=== PATIENT | male | born 1990 | race Caucasian/White ===

== ENCOUNTER 2022-04-24 14:06 | Emergency (ER) | payer OTHER, SELFPAY ==
[2022-04-24 14:16] VITALS: BP 125/75; PULSE 77; RESP 24; TEMP 36.5; O2SAT 96
--- NOTE | 2022-04-24 14:24 | ED.URI ---
HPI - URI/Sore Throat General Chief Complaint: Upper Respiratory Infection Stated Complaint: Fluid in lungs, coughing Time Seen by Provider: 04/24/22 14:20 Source: patient, RN notes reviewed and old records reviewed Mode of arrival: ambulatory Limitations: no limitations History of Present Illness HPI Narrative: 31-year-old male who presents to [facility] care with complaints of cough, congestion, nasal drainage, with some scattered wheezing and shortness of breath when he lays down. Patient does smoke 1 pack daily for the last 15 years. Patient has been COVID vaccinated and he also had COVID in 2020.Patient has been taking Mucinex DM, Tylenol and Dayquil for his symptoms. Patient is able to speak in full sentences with SAO2 96% on room air, mild tachypnea noted with no accessory muscle use. MD elicited complaint: fever, cough and other (ear pain, body aches) Pertinent past history: other (tobacco abuse) Onset (ago): day(s) (day 2 of symptoms) Pain scale (0-10): 5 Treatments prior to arrival: acetaminophen, cold medicine and other (mucinex DM ) Related Data Allergies Allergy/AdvReac Type Severity Reaction Status Date / Time Penicillins Allergy Unknown Unknown Verified 04/24/22 14:34 Review of Systems Review of Systems: CONSTITUTIONAL: feels feverish chills, or sweats. EYES: Denies visual changes, redness, or discharge. ENT: Positive for rhinorrhea, congestion, no sore throat, or otalgia. CARDIOVASCULAR: Denies chest pain, palpitations, or edema. RESPIRATORY: positive for cough or dyspnea when lying down. GASTROINTESTINAL: Denies abdominal pain, nausea, vomiting, or diarrhea. GENITOURINARY: Denies dysuria or hematuria. SKIN: Denies rash or itching. MUSCULOSKELETAL: Denies back pain, joint pain,+ body aches NEUROLOGIC: + headache, no numbness, or weakness. PSYCHIATRIC: Denies anxiety or depression. All systems reviewed & are unremarkable except as noted in HPI and below [facility] Social History Social History (Updated 04/26/22 @ 21:45 by Angelika Rodriguez NP) Smoking packs per day: 1 Smoking cigarettes per day: 20.0 Years smoked: 15 Smoking pack-years: 15.00 Smoking status: Current every day smoker Alcohol intake: current Alcohol use details: social Substance use type: does not use Living arrangements: with family Additional occupation/education comments: [employer] Gender identity (if verbalized by the patient): Male Comments At time of signature, agree with nursing past medical, surgical, social and family history. There is no relevant family history pertinent to the presenting complaint Exam Narrative: GENERAL: ill-appearing, well-nourished, and in no acute distress. HEAD: Normocephalic, atraumatic. EYES: PERRLA and EOMI. ENT: Nares red yellow rhinorrhea no epistaxis. Mucous membranes moist.TM's normal with good light reflex throat with some redness no lesions or tonsil swelling post nasal drainage NECK: Supple.no lymphadenopathy CHEST: Scattered wheezing on auscultation. No respiratory distress.SAO2 96% on room air harsh loose cough able to speak in full sentences, orthopnea reported and some mild tachypnea EXTREMITIES: Normal range of motion. No edema. SKIN: Warm, dry, no rash. NEURO: No focal deficits. Alert and oriented x3. Course Course Level of Care: Express Care Visit Vital Signs Vital signs: Vital Signs Temperature 36.5 C 04/24/22 14:16 Pulse Rate 77 04/24/22 14:16 Respiratory Rate 24 H 04/24/22 14:16 Blood Pressure 125/75 04/24/22 14:16 Pulse Oximetry 96 04/24/22 14:16 Oxygen Delivery Room Air 04/24/22 14:16 Temperature 36.5 C 04/24/22 14:16 Pulse Rate 77 04/24/22 14:16 Respiratory Rate 24 H 04/24/22 14:16 Blood Pressure 125/75 04/24/22 14:16 Pulse Oximetry 96 04/24/22 14:16 Oxygen Delivery Room Air 04/24/22 14:16 Critical Care Time Critical Care Time Critical Care Time: No Discharge Plan Discharge Clinical Impression: URI, acute, Bronch
== END 2022-04-24 14:45 | disposition home or self-care (01) ==
PROVIDERS: Emergency Provider Registered Nurse
DX: J06.9 Acute upper respiratory infection, unspecified (principal); J40 Bronchitis, not specified as acute or chronic; F17.210 Nicotine dependence, cigarettes, uncomplicated
CPT/HCPCS: 99213; G0463

== ENCOUNTER 2024-03-25 20:01 | Emergency (ER) | payer OTHER, SELFPAY ==
[2024-03-25 20:08] VITALS: BP 129/82; PULSE 93; RESP 20; TEMP 36.7; O2SAT 100
--- NOTE | 2024-03-25 20:51 | ED.UPPEXIN ---
HPI - Extremity Injury (Upper) General Chief Complaint: Extremity Injury, Upper Stated Complaint: left hand fish hook in finger Time Seen by Provider: 03/25/24 20:12 Source: patient, RN notes reviewed and old records reviewed Mode of arrival: ambulatory Limitations: no limitations History of Present Illness HPI narrative: 33 year old male accompanied by son presents to express care with complaints of single barbed fish hook in the end of his left index finger which occurred about 1930 this evening. Patient reports that he was cleaning out the tackle box and got new hook stuck in his left index finger, reports sharp pain to finger tip, rates pain 4/10. Patient is right hand dominant, Tetanus last 2016 MD complaint: injury to: left and finger (tip of left index finger fish hook) Onset (ago): hour(s) (1929) Handedness: right Severity scale (1-10): 4 Treatments prior to arrival: other (none) Related Data Allergies Allergy/AdvReac Type Severity Reaction Status Date / Time Penicillins Allergy Unknown Unknown Verified 04/24/22 14:34 Review of Systems Review of Systems: CONSTITUTIONAL: Denies fever, chills, or sweats. EYES: Denies visual changes, redness, or discharge. ENT: Denies rhinorrhea, congestion, sore throat, or otalgia. CARDIOVASCULAR: Denies chest pain, palpitations, or edema. RESPIRATORY: Denies cough or dyspnea. GASTROINTESTINAL: Denies abdominal pain, nausea, vomiting, or diarrhea. GENITOURINARY: Denies dysuria or hematuria. SKIN:foreign body to left index finger single yaz at 1930 this evening MUSCULOSKELETAL: Denies back pain, joint pain, or myalgia. NEUROLOGIC: Denies headache, numbness, or weakness. PSYCHIATRIC: Denies anxiety or depression. All systems reviewed & are unremarkable except as noted in HPI and below PMFSH Past Medical History Medical History (Updated 03/26/24 @ 22:06 by Angelika Rodriguez NP) No pertinent past medical history Surgical History Surgical History (Updated 03/26/24 @ 21:55 by Angelika Rodriguez NP) No history of previous surgery Social History Social History (Updated 04/26/22 @ 21:45 by Angelika Rodriguez NP) Smoking packs per day: 1 Smoking cigarettes per day: 20.0 Years smoked: 15 Smoking pack-years: 15.00 Smoking status: Current every day smoker Alcohol intake: current Alcohol use details: social Substance use type: does not use Living arrangements: with family Additional occupation/education comments: [employer] Gender identity (if verbalized by the patient): Male Comments At time of signature, agree with nursing past medical, surgical, social and family history. There is no relevant family history pertinent to the presenting complaint Exam Narrative: GENERAL: Well-appearing, well-nourished, and in no acute distress. HEAD: Normocephalic, atraumatic. EYES: PERRLA and EOMI. ENT: Nares clear, no rhinorrhea or epistaxis. Mucous membranes moist. NECK: Supple.no lymphadenopathy CHEST: Clear to auscultation. No respiratory distress.SAO2 100% on room air HEART: Regular rate and rhythm. No murmur heard. Normal peripheral pulses. ABDOMEN: Soft, nontender, nondistended, normal active bowel sounds. EXTREMITIES: Normal range of motion. No edema. SKIN: Warm, dry, no rash. single barbed fish hook to tip of left index finger see procedure note, nail bed has brisk capillary refill no acute bleeding noted. NEURO: No focal deficits. Alert and oriented x3. Course Course Emergency Course: Patient is aware of diagnosis, understands and agrees to treatment plan.? Anticipatory guidance given.? Patient agrees to follow-up as directed and is aware of reasons to seek care at the emergency department. Portions of this record may have been created with voice recognition software Level of Care: Express Care Visit Vital Signs Vital signs: Vital Signs Temperature 36.7 C 03/25/24 20:08 Pulse Rate 93 03/25/24 20:08 Respiratory Rate 20 03/25/24 20:08 Blood
== END 2024-03-25 21:12 | disposition home or self-care (01) ==
PROVIDERS: Emergency Provider Registered Nurse
DX: S61.241A Puncture wound with foreign body of left index finger without damage to nail, initial encounter (principal); W26.8XXA Contact with other sharp object(s), not elsewhere classified, initial encounter; F17.210 Nicotine dependence, cigarettes, uncomplicated
CPT/HCPCS: 10120; 99213; G0463